=== PATIENT | female | born 1995 | race Caucasian/White ===

== ENCOUNTER 2022-08-11 12:12 | Outpatient (CLI) | payer SELFPAY ==
[2022-08-11 12:53] VITALS: BP 120/58; PULSE 100; RESP 18; TEMP 97.9
--- NOTE | 2022-08-15 10:25 | P.MSEPDOC ---
Presenting Problems - Arrival Data Date of Arrival on Unit: 08/11/22 Time of Arrival on Unit: 12:12 Mode of Transport: Ambulatory - Complaint OB-Reason for Admission/Chief Complaint: Possible Onset of Labor Comment: pelvic pressure, vaginal pain Medical History - Information : 3 Para: 2 Term: 2 : 0 Abortions: Spontaneous or Elective: 0 Number of Living Children: 2 - Gestational Age Gestational Age by LARRY (wks/days): 36 Weeks and 3 Days - History Complications: GDM Comment: GDM diet, well controlled Review of Systems - Review of Systems Constitutional: No problems Breast: No problems ENT: No problems Cardiovascular: No problems Respiratory: No problems Gastrointestinal: No problems Genitourinary: No problems Musculoskeletal: No problems Neurological: No problems Skin: No problems Vital Signs - Temperature Temperature: 97.9 F Temperature Source: Oral - Pulse Right Sitting Brachial Pulse Rate: 100 Pulse Assessment Method: Automatic Cuff - Respirations Respiratory Rate: 18 Oxygen Delivery Method: Room Air O2 Sat by Pulse Oximetry: 98 - Blood Pressure Right Arm Sitting Blood Pressure: 120/58 Blood Pressure Mean: 78 Blood Pressure Source: Automatic Cuff Medical Screen Scoring - Cervical Exam Dilation (cm): 1 Effacement (%): 0 Station: -3 Membranes: Intact - Uterine Contractions Frequency From (mins): 2 Frequency To (mins): 6 Duration From (seconds): 40 Duration To (seconds): 80 Intensity: Mild Resting: Soft to palpation - Assessment - Baby A Baseline FHR: 125 Heart Rate - NICHD Category: Category I (Normal) NST: Reactive Physician Notification - Physician Notified Physician Notified Date: 08/11/22 Physician Notified Time: 12:45 Physician: Christy Godinez Order Received: Yes - Notification Comment Comment: dc home. Follow up with dr valencia in the office as scheduled. Maternal Triage Index - Maternal Triage Index Presenting for scheduled procedure w/no complaint: No - Stat/Priority 1 Stat Priority 1: No - Urgent/Priority 2 Urgent Priority 2: No - Prompt/Priority 3 Prompt Priority 3: Yes Criteria Met for Priority 3: irreg contractions, reactive NST, cx 1/thick/high, no change from 2 weeks ago. No leaking or bleeding. Disposition - Disposition OB Disposition: Physician follow up in office, Discharge to home, Written follow up instructions reviewed Discharge Date: 08/11/22 Discharge Time: 12:12 I agree with the RN Medical Screening Exam: Yes Case reviewed; plan agreed upon as documented in EMR&OBIX.: Yes Diagnosis: FALSE LABOR BEFORE 37 COMPLETED WEEKS OF GEST, THIRD TRI
== END 2022-08-11 12:53 | disposition home or self-care (01) ==
LOC: FBPOP 12:12
PROVIDERS: ATTEND Obstetrics & Gynecology
DX: O47.03 False labor before 37 completed weeks of gestation, third trimester (principal); Z3A.36 36 weeks gestation of pregnancy
CPT/HCPCS: 59025; 99213

== ENCOUNTER 2022-08-26 05:55 | Inpatient (IN) | payer OTHER ==
[2022-08-26] MEDS ORDERED: LIDOCAINE 0.5% (PF) 5 MG/ML (50 ML SDV) SQ PRN (06:15)
[2022-08-26] MEDS ORDERED: TERBUTALINE 1 MG/ML VIAL SQ PRN (06:15)
[2022-08-26] MEDS ORDERED: OXYTOCIN 30 UNITS/500 ML NS 30 UNIT in SALINE 1 500ML.BAG IV SCH ×2 (06:15→16:45)
[2022-08-26] MEDS: LACTATED RINGERS 1,000 ML IV SCH ×3 (06:25→22:46)
[2022-08-26 06:41] LABS: Glucose,Whole Blood 75 mg/dL (70-110)
[2022-08-26 07:15] LABS: Anisocytosis Slight; Basophils % (A) 0 %; Eosinophils # (A) 0.1 k/uL (0-0.7); Eosinophils % (A) 1 %; HCT 31.8 % (34.0-46.0); HGB 9.7 gm/dL (11.4-16.0); Hypochromasia Moderate; Lymphocytes # (A) 1.7 k/uL (1.0-4.8); Lymphocytes % (A) 25 %; MCHC 30.4 g/dL (31.0-37.0); MCV 69.1 fL (80.0-100.0); Mean Platelet Volume 8.1; Microcytosis Marked; Monocytes # (A) 0.4 k/uL (0-1.0); Monocytes % (A) 6 %; Neutrophils # (A) 4.5 k/uL (1.3-7.7); Neutrophils % (A) 65 %; Platelet Count 217 k/uL (150-450); Poikilocytosis Slight; RDW 17.2 % (11.5-15.5); WBC 6.9 k/uL (3.8-10.6)
[2022-08-26] MEDS ORDERED: ROPIVACAINE 5 MG/ML 20 ML AMPULE ONE (10:20)
[2022-08-26] MEDS ORDERED: SODIUM CHLORIDE 0.9% 100 ML BAG ONE (10:20)
[2022-08-26] MEDS ORDERED: fentaNYL (PF) 50 MCG/ML 5 ML AMP ONE (10:20)
--- NOTE | 2022-08-26 16:38 | P.HPOB ---
History of Present Illness H&P Date: 08/26/22 Chief Complaint: IUP at 38 and 4, gestational diabetes 37-year-old at 38-4/7 weeks, estimated due date of September 05 of presents for induction of labor. Patient has been receiving routine care, stated by diagnosis of gestational diabetes. She states her blood sugars have been well-controlled, she firmly forgot her blood sugar readings at office visits. Patient is a known [employer] and did have COVID-19 in May. Patient elected induction of labor. On bloodwork this patient has a blood type of O+, rubella status immune, hepatitis B surface antigen is negative, HIV negative, RPR is nonreactive, group beta strep cultures negative. This morning patient notes good movement she denies contractions vaginal bleeding or loss of fluid. Review of Systems Constitutional: Denies chills, Denies fatigue, Denies fever Ears, nose, mouth and throat: Denies headache Cardiovascular: Reports leg edema Respiratory: Denies dyspnea Gastrointestinal: Denies constipation, Denies diarrhea, Denies nausea, Denies v omiting Genitourinary: Reports Past Medical History Additional Past Medical History / Comment(s): GDM History of Any Multi-Drug Resistant Organisms: None Reported Past Surgical History: No Surgical Hx Reported Past Anesthesia/Blood Transfusion Reactions: No Reported Reaction Smoking Status: Former smoker Past Alcohol Use History: None Reported Additional Drug Use History / Comment(s): occasional vaping of THC before Medications and Allergies Home Medications Medication Instructions Recorded Confirmed Type Vit No.180/Iron/Folic 1 each PO DAILY 08/11/22 08/26/22 History [ Plus Tablet] Allergies Allergy/AdvReac Type Severity Reaction Status Date / Time No Known Allergies Allergy Verified 08/11/22 12:26 Exam Osteopathic Statement: *. No significant issues noted on an osteopathic structural exam other than those noted in the History and Physical/Consult. Vital Signs Pulse Resp BP Pulse Ox 08/26/22 06:11 105 H 18 131/62 98 Intake and Output 08/26/22 08/26/22 08/26/22 06:59 14:59 22:59 Output Total 400 Balance -400 Output: Urine 400 Other: Weight 99.79 kg Targeted physical exam is performed in this date, in general this is a well- nourished well-developed female in no acute distress, breathing is nonlabored, heart has a regular rate and rhythm, abdomen is gravid and appropriate for gestational age, on cervical exam she is 2/thick/-3 station amniotomy is performed and clear fluid was obtained. heart tones are be category 1 and was tommie irregularly. Results Result Diagrams: 08/26/22 06:10 Abnormal Lab Results - Last 24 Hours (Table) 08/26/22 Range/Units 06:10 Hgb 9.7 L (11.4-16.0) gm/dL Hct 31.8 L (34.0-46.0) % MCV 69.1 L (80.0-100.0) fL MCH 21.0 L (25.0-35.0) pg MCHC 30.4 L (31.0-37.0) g/dL RDW 17.2 H (11.5-15.5) % Assessment and Plan (1) Term Current Visit: Yes Status: Acute Code(s): Z34.90 - ENCNTR FOR SUPRVSN OF NORMAL , UNSP, UNSP TRIMESTER SNOMED Code(s): 58478879 (2) GDM, class A1 Current Visit: Yes Status: Acute Code(s): O24.410 - GESTATIONAL DIABETES MELLITUS IN , DIET CONTROLLED SNOMED Code(s): 38467440 Plan: 27-year-old at 38-4/7 weeks that presents for induction of labor secondary to gestational diabetes, questionable control. Patient is admitted and Pitocin induction of labor is begun. Patient underwent amniotomy and clear. Patient is counseled on options for analgesia including Stadol, nitrous, epidural. Patient states she would like epidural when appropriate. Anticipate spontaneous vaginal delivery later today.
[2022-08-26] MEDS ORDERED: ZOLPIDEM 5 MG TAB PO PRN (16:40)
[2022-08-26] MEDS ORDERED: diphenhydrAMINE 25 MG CAP PO PRN (16:40)
[2022-08-26] MEDS ORDERED: BENZOCAINE/MENTHOL SPRAY 1 GM/SPRAY AEROSOL TOPICAL PRN (16:40)
[2022-08-26] MEDS ORDERED: SIMETHICONE 80 MG CHEWABLE PO PRN (16:40)
[2022-08-26] MEDS ORDERED: diphenhydrAMINE 50 MG CAP PO PRN (16:40)
[2022-08-26] MEDS ORDERED: LANOLIN CREAM 5 GM TUBE TOPICAL PRN (16:40)
[2022-08-26] MEDS ORDERED: HYDROCORTISONE 2.5% RECTAL CREAM 30 GM TUBE RECTAL PRN (16:40)
[2022-08-26] MEDS ORDERED: diphenhydrAMINE 50 MG/ML 1 ML VIAL IVP PRN ×2 (16:40)
--- NOTE | 2022-08-26 16:40 | P.PROBDLV ---
Vaginal Delivery Note - . Vaginal Delivery Note: Findings viable male delivered at 1617, weight of 7 pounds 9.7 ounces, Apgars of 8 and 9 at one and 5 minutes respectively. 27 year old at 38-4/7 weeks that presented to labor and delivery for induction of labor secondary to gestational diabetes diagnosis. Patient was admitted to labor and delivery and Pitocin induction of labor was begun. Amniotomy was performed and clear fluid was obtained. Patient quickly became uncomfortable and requested epidural placement. Patient had epidural placed without difficulty by the anesthesia department. Patient progressed through labor eventually becoming uncomfortable and was noted to be 8 cm. Patient prog ressed to complete and with excellent maternal effort brought the infant down to a presentation, with additional pushing the anterior/posterior shoulder were delivered. A loose nuchal cord was noted and delivered through once the infant was delivered he was placed on the maternal abdomen. Spontaneous cry was noted at . After two-minute delay the umbilical cord was doubly clamped a nd cut. Cord blood was then taken. The placenta was then delivered spontaneously intact with a three-vessel cord being noted. On inspection the patient's vaginal vault a left lateral vaginal wall laceration was appreciated this was repaired in the usual fashion with 4-0 chromic. Hemostasis was appreciated after closure. Uterus is noted be firm and below the umbilicus at this time. Estimated blood loss 100 mL. All counts were noted to be correct 2 at the delivery. Patient and tolerated delivery well and are resting comfortably
[2022-08-26] MEDS: IBUPROFEN 600 MG TAB PO SCH (17:00)
[2022-08-26] MEDS: SENNOSIDES-DOCUSATE SODIUM 1 EACH TAB PO SCH (20:46)
[2022-08-26] MEDS: ACETAMINOPHEN TAB 325 MG TAB PO PRN (20:46)
[2022-08-27] MEDS: ACETAMINOPHEN TAB 325 MG TAB PO PRN (06:27)
[2022-08-27] MEDS: IBUPROFEN 600 MG TAB PO SCH ×3 (06:27→14:19)
[2022-08-27] MEDS: LACTATED RINGERS 1,000 ML IV SCH (06:29)
[2022-08-27] MEDS: SENNOSIDES-DOCUSATE SODIUM 1 EACH TAB PO SCH (08:43)
--- NOTE | 2022-08-27 08:46 | P.DS ---
Providers Date of admission: 08/26/22 05:55 Expected date of discharge: 08/27/22 Attending physician: Isha Baron Primary care physician: Stated None - Discharge Diagnosis(es) (1) Term Current Visit: Yes Status: Acute (2) GDM, class A1 Current Visit: Yes Status: Acute (3) Status post vaginal delivery Current Visit: Yes Status: Acute (4) Obstetric labial laceration, delivered, current hospitalization Current Visit: Yes Status: Acute Hospital Course: 27-year-old G3 now P3 that presented to labor and delivery yesterday for scheduled induction of labor at 38-4/7 weeks secondary to a diagnosis of gestational diabetes. Patient stated she had well controlled her blood sugars but failed to bring her blood sugar she is to the office for her routine appointment. For full details on this patient please see the dictated history and physical. Patient was admitted and Pitocin induction of labor was begun. Patient made slow progress in labor but did become uncomfortable. Patient did request epidural placement. Epidural was placed without difficulty by the anesthesia department. Patient made progress through labor eventually becoming complete. Patient had a normal spontaneous vaginal delivery of a viable male at 1617, weight of 7 lbs. 10 oz. Patient did sustain a left labial laceration which was repaired in usual fashion with 4-0 chromic. Patient has done well . On this postop day #1 she is ambulating and voiding without difficulty. She is tolerating a regular diet without nausea or vomitin g. She is bottle feeding. She denies concerns. She would like discharge home later today if possible. Patient Condition at Discharge: Good Plan - Discharge Summary New Discharge Prescriptions: No Action Vit No.180/Iron/Folic [ Plus Tablet] 1 each PO DAILY Discharge Medication List Vit No.180/Iron/Folic [ Plus Tablet] 1 each PO DAILY 08/11/22 [History] Follow up Appointment(s)/Referral(s): Isha Baron DO [Doctor of Osteopathic Medicine] - 4 Weeks Patient Instructions/Handouts: Vaginal Delivery (DC), Vaginal Delivery (GEN) Activity/Diet/Wound Care/Special Instructions: Patient is counseled on pelvic rest for 6 weeks . No tub baths or intercourse until 6 weeks . Patient can expect menstrual-like bleeding throughout the six-week period. Patient is to call the office and schedule a routine visit at 4 weeks . Should she have any concerns prior to this appointment she is to call the office. Discharge Disposition: HOME SELF-CARE
[2022-08-27] MEDS ORDERED: PRENATAL VIT-IRON-FOLIC ACID 1 EACH TABLET PO SCH (09:00)
[2022-08-27 15:32] VITALS: BP 94/56; PULSE 76; RESP 14; TEMP 98.1
== END 2022-08-27 17:16 | disposition home or self-care (01) | DRG 806 ==
LOC: 4FBP 05:55
PROVIDERS: ADMIT Obstetrics & Gynecology Obstetrics; ATTEND Obstetrics & Gynecology Obstetrics
PROC: 10E0XZZ Delivery of Products of Conception, External Approach (ICD-10-PCS; principal; 2022-08-26)
PROC: 0KQM0ZZ Repair Perineum Muscle, Open Approach (ICD-10-PCS; 2022-08-26)
PROC: 10907ZC Drainage of Amniotic Fluid, Therapeutic from Products of Conception, Via Natural or Artificial Opening (ICD-10-PCS; 2022-08-26)
PROC: 4A0HXCZ Measurement of Products of Conception, Cardiac Rate, External Approach (ICD-10-PCS; 2022-08-26)
PROC: 3E033VJ Introduction of Other Hormone into Peripheral Vein, Percutaneous Approach (ICD-10-PCS; 2022-08-26)
DX: O24.420 Gestational diabetes mellitus in childbirth, diet controlled (principal); O71.4 Obstetric high vaginal laceration alone; Z37.0 Single live birth; O69.81X0 Labor and delivery complicated by cord around neck, without compression, not applicable or unspecified; Z3A.38 38 weeks gestation of pregnancy; Z86.16 Personal history of COVID-19; Z87.891 Personal history of nicotine dependence
CPT/HCPCS: 85025; 86850; 86900; 86901